=== PATIENT | female | born 1980 | race Caucasian/White ===

== ENCOUNTER 2016-04-18 03:54 | Emergency (ER) | payer MEDICARE ==
[2016-04-18 06:06] LABS: BUN/CREATININE RATIO 24 (0-10)
[2016-04-18 06:11] LABS: HEMOGLOBIN 16.2 gm/dl (12.3-15.3); RED BLOOD COUNT 5.11 M/UL (4.00-5.10); WHITE BLOOD COUNT 14.2 K/UL (4.5-11.0)
== END 2016-04-18 08:53 | disposition home or self-care (01) ==
LOC: ER1 03:54
PROVIDERS: Family Medicine
DX: R10.12 Left upper quadrant pain (principal); R10.32 Left lower quadrant pain; R31.9 Hematuria, unspecified; R11.2 Nausea with vomiting, unspecified; K59.00 Constipation, unspecified; F17.210 Nicotine dependence, cigarettes, uncomplicated
CPT/HCPCS: 36415; 80053; 81001; 82150; 83690; 84703; 85025; 96374; 96375; 99284; J1885; J2270; J2405; J7050; Q9962

== ENCOUNTER 2020-12-15 10:51 | Emergency (ER) | payer OTHER ==
[~2020-12-15 10:51] MED LIST: AUGMENTIN 875-1 EACH PO; NAPROSYN500 MG PO; OMNICEF 300 MG300 MG PO; ZOFRAN4 MG PO
[2020-12-15] MEDS ORDERED: VOLTAREN ARTHRI20 GM TP (15:18)
[2020-12-15] MEDS ORDERED: CYCLOBENZAPRINE10 MG PO (15:18)
== END 2020-12-15 15:29 | disposition home or self-care (01) ==
LOC: ER1 10:51
DX: M25.512 Pain in left shoulder (principal); Z90.49 Acquired absence of other specified parts of digestive tract
CPT/HCPCS: 73030; 99283

== ENCOUNTER → 2021-05-25 | Outpatient (CLI) | payer OTHER ==
[~2021-05-25] MED LIST changes: +CYCLOBENZAPRINE10 MG PO; +VOLTAREN ARTHRI20 GM TP
== END ==
LOC: KOH-I 15:30
DX: R31.9 Hematuria, unspecified (principal); N20.0 Calculus of kidney; Z87.442 Personal history of urinary calculi
CPT/HCPCS: 74176

== ENCOUNTER → 2021-10-27 | Outpatient (CLI) | payer OTHER ==
[2021-10-27 11:09] LABS: HEMOGLOBIN 15.8 gm/dl (12.3-15.3); RED BLOOD COUNT 5.06 M/UL (4.00-5.10); WHITE BLOOD COUNT 13.6 K/UL (4.5-11.0)
[2021-10-28 06:09] LABS: HIV AB/P24 AG SCREEN Non Reactive (Non Reactive)
[2021-10-28 07:11] LABS: RPR Non Reactive (Non Reactive)
[2021-10-28 12:15] LABS: RHEUMATOID ARTHRITIS FACTOR <10.0 IU/mL (<14.0)
[2021-10-28 14:11] LABS: ANGIOTENSIN-CONVERTING ENZYME 31 U/L (14-82); LYME TOTAL ANTIBODY CIA Negative (Negative)
[2021-10-28 15:11] LABS: T PALLIDUM AB (FTA-AB) Non Reactive (Non Reactive)
[2021-10-30 10:14] LABS: QUANTIFERON MITOGEN VALUE >10.00 IU/mL (.); QUANTIFERON NIL VALUE 0.02 IU/mL (.); QUANTIFERON TB1 AG VALUE 0.01 IU/mL (.); QUANTIFERON TB2 AG VALUE 0.01 IU/mL (.); QUANTIFERON-TB GOLD PLUS Negative (Negative)
== END ==
LOC: LAB 10:26
PROVIDERS: Optometrist
DX: H20.00 Unspecified acute and subacute iridocyclitis (principal)
CPT/HCPCS: 36415; 81374; 82164; 85025; 85549; 86038; 86431; 86592; 86618; 86780; 87389